=== PATIENT | male | born 1995 | race African-American/Black ===

== ENCOUNTER 2017-12-06 11:18 | Inpatient (IN) | payer OTHER ==
[2017-12-06 11:55] LABS: HEMATOCRIT 47.5 % (42.0-52.0); HEMOGLOBIN 15.7 g/dl (14.0-18.0); MEAN CORPUSCULAR HEMOGLOBIN 27.8 pg (27.0-33.0); MEAN CORPUSCULAR HGB CONC 33.1 g/dl (32.0-36.5); MEAN CORPUSCULAR VOLUME 84.2 fl (80.0-96.0); PLATELET COUNT, AUTOMATED 285 10^3/uL (150-450); RED BLOOD COUNT 5.64 10^6/uL (4.30-6.10); RED CELL DISTRIBUTION WIDTH 13.3 % (11.5-14.5); WHITE BLOOD COUNT 4.1 10^3/uL (4.0-10.0)
[2017-12-06 12:12] LABS: AMPHETAMINES LEVEL URINE NEGATIVE (NEGATIVE); BARBITURATES URINE NEGATIVE (NEGATIVE); BENZODIAZEPINES URINE NEGATIVE (NEGATIVE); CANNABINOIDS URINE NEGATIVE (NEGATIVE); COCAINE METABOLITE URINE NEGATIVE (NEGATIVE); METHADONE URINE NEGATIVE (NEGATIVE); OPIATES URINE NEGATIVE (NEGATIVE); PHENCYCLIDINE URINE NEGATIVE (NEGATIVE)
[2017-12-06 12:19] LABS: ALBUMIN 4.5 GM/DL (3.2-5.2); ALBUMIN/GLOBULIN RATIO 1.29 (1.00-1.93); ALKALINE PHOSPHATASE 62 U/L (45-117); ALT/SGPT 19 U/L (12-78); ANION GAP 9 MEQ/L (8-16); AST/SGOT 17 U/L (7-37); BILIRUBIN,DIRECT 0.2 MG/DL (0.0-0.2); BILIRUBIN,TOTAL 0.6 MG/DL (0.2-1.0); BLOOD UREA NITROGEN 12 MG/DL (7-18); CALCIUM LEVEL 9.1 MG/DL (8.5-10.1); CARBON DIOXIDE LEVEL 27 MEQ/L (21-32); CHLORIDE LEVEL 104 MEQ/L (98-107); CREATININE FOR GFR 1.01 MG/DL (0.70-1.30); GLOMERULAR FILTRATION RATE > 60.0 (>60); GLUCOSE, FASTING 98 MG/DL (70-100); SALICYLATE LEVEL < 1.7 MG/DL (5.0-30.0); SODIUM LEVEL 140 MEQ/L (136-145)
[2017-12-06 12:39] LABS: ACETAMINOPHEN LEVEL < 2.0 UG/ML (10.0-30.0); ETHYL ALCOHOL (ETHANOL) < 0.003 % (0.000-0.010)
[2017-12-06] MEDS ORDERED: MOM 30ML SUSPENSION UDC PO (19:15)
[2017-12-06] MEDS ORDERED: ACETAMINOPHEN TAB 650MG DOSE (2X325MG) PO (19:15)
[2017-12-06] MEDS ORDERED: MAALOX 30 ML SUSP *UDC PO (19:15)
[2017-12-06] MEDS: traZODone 50 MG TAB PO (22:11)
[2017-12-07] MEDS ORDERED: hydrOXYzine 25 MG TAB PO (11:45)
[2017-12-07] MEDS: ESCITALOPRAM OXALATE 10 MG TAB (LEXAPRO) PO (12:04)
[2017-12-07] MEDS: traZODone 50 MG TAB PO (21:00)
[2017-12-08] MEDS: ESCITALOPRAM OXALATE 10 MG TAB (LEXAPRO) PO (09:07)
[2017-12-08] MEDS: traZODone 50 MG TAB PO (22:22)
[2017-12-09] MEDS: ESCITALOPRAM OXALATE 10 MG TAB (LEXAPRO) PO (10:28)
== END 2017-12-09 11:00 | disposition home or self-care (01) | DRG 881 ==
LOC: M ED 11:18 → M ED INP 15:42 → M PSY 17:03
DX: F43.21 Adjustment disorder with depressed mood (principal); Z56.89 Other problems related to employment; Z91.82 Personal history of military deployment; Z91.5 Personal history of self-harm; Z63.5 Disruption of family by separation and divorce